=== PATIENT | female | born 1940 | race African-American/Black ===

== ENCOUNTER 2017-03-21 09:16 | Day surgery (SDC) | payer MEDICARE, MEDICAID ==
[~2017-03-21] VITALS: Ht 154.9 cm; Wt 49.0 kg
[~2017-03-21 09:16] MED LIST: ASPI-1159 PO; ASPI-867 PO; CLOP75TA16 PO; LIP40 PO; MECL-109 PO
[2017-03-21] MEDS ORDERED: AMLO10TA80 PO (10:14)
[2017-03-21] MEDS ORDERED: METO-396 PO (10:14)
[2017-03-21] MEDS ORDERED: NITROGLYCERIN 50MCG/ML 10ML VIAL (CATH LAB) IV ONE (11:53)
[2017-03-21] MEDS ORDERED: NICARDIPINE 100MCG/ML 10ML VIAL (CATH LAB) IV ONE (11:53)
[2017-03-21] MEDS ORDERED: FENTANYL CITRATE/PF 50MCG/ML 2ML VIAL ONE (12:47)
[2017-03-21] MEDS ORDERED: MIDAZOLAM HCL 2 MG/2 ML VIAL ONE (12:47)
[2017-03-21] MEDS ORDERED: IODIXANOL 320MG/ML 100 ML BOTTLE IV ONE (12:48)
[2017-03-21] MEDS ORDERED: LIDOCAINE HCL 1% 20ML VIAL (Pyxis) INJ ONE (12:48)
[2017-03-21] MEDS ORDERED: HEPARIN SODIUM 1,000 UNIT/1ML VIAL IV ONE (12:49)
== END 2017-03-21 19:30 | disposition home or self-care (01) ==
LOC: CCL 09:16
PROVIDERS: ATTEND Specialist
DX: I25.10 Atherosclerotic heart disease of native coronary artery without angina pectoris (principal); I10 Essential (primary) hypertension; I73.89 Other specified peripheral vascular diseases; E78.5 Hyperlipidemia, unspecified
CPT/HCPCS: 93458; 99152; 99153; C1760; C1769; C1887; C1893; J1644; J2250; J3010; J3490; Q9967

== ENCOUNTER 2018-06-03 04:49 | Inpatient (IN) | payer MEDICARE, MEDICAID, OTHER ==
[~2018-06-03] VITALS: Ht 154.9 cm; Wt 53.6 kg
[~2018-06-03 04:49] MED LIST changes: +AMLO10TA80 PO; -ASPI-1159 PO; -ASPI-867 PO; -LIP40 PO
[2018-06-03] MEDS ORDERED: NITROGLYCERIN OINT 1GM/INCH UDPKT TD ONE (05:30)
[2018-06-03 06:13] LABS: BASOPHILS % 0.4 % (0.0-2.0); EOSINOPHILS % 1.5 % (0.0-5.0); HEMATOCRIT. 36.8 % (36.0-48.0); HEMOGLOBIN. 11.9 g/dL (12.0-16.0); LYMPHOCYTES % 31.4 % (20.0-50.0); MEAN CORPUSCULAR HEMOGLOBIN 29.8 pg (28.0-32.0); MEAN CORPUSCULAR VOLUME 92.2 fL (81.0-99.0); MEAN PLATELET VOLUME 10.1 fl (7.4-10.4); MONOCYTES % 11.9 % (2.0-8.0); NEUTROPHILS % 54.8 % (40.0-76.0); PLATELET 186 x1000/uL (130-400); RED CELL DISTRIBUTION WIDTH 16.4 % (11.6-14.6)
[2018-06-03 06:20] LABS: CHLORIDE 116 mEq/L (98-107)
[2018-06-03] MEDS ORDERED: MAGNESIUM/ALUMINUM HYDROXIDE/SIMETHICONE 30ML UDC PO PRN (07:45)
[2018-06-03] MEDS ORDERED: GUAIFENESIN 200MG/10ML SUGAR FREE UDC PO PRN (07:45)
[2018-06-03] MEDS ORDERED: CLONIDINE 0.1MG TABLET PO PRN (07:45)
[2018-06-03] MEDS ORDERED: DOCUSATE SODIUM 100MG CAPSULE PO PRN (07:45)
[2018-06-03] MEDS ORDERED: AMLODIPINE 5MG TABLET PO NR (08:45)
[2018-06-03] MEDS: ASPIRIN 81MG EC TABLET PO SCH (09:00)
[2018-06-03] MEDS ORDERED: AMLODIPINE 5MG TABLET PO SCH ×2 (09:00→17:00)
[2018-06-03] MEDS ORDERED: NITROGLYCERIN OINT 1GM/INCH UDPKT TD SCH (12:00)
[2018-06-03] MEDS: HYDROCODONE/ACETAMINOPHEN 5/325MG TABLET PO PRN (15:45)
[2018-06-03 17:49] VITALS: BP 149/68
[2018-06-03 17:50] VITALS: BP 149/68
[2018-06-03] MEDS ORDERED: ONDANSETRON HCL 4MG/2ML INJ IV PRN (18:04)
[2018-06-03] MEDS ORDERED: REGADENOSON 0.4 MG/5 ML IV SCH (18:05)
[2018-06-03] MEDS ORDERED: MORPHINE SULFATE 4 MG/ML CPJ (NOT FOR IM USE) IV PRN (18:05)
[2018-06-03 20:00] VITALS: BP 150/72
[2018-06-03] MEDS ORDERED: ENOXAPARIN 30MG/0.3ML SYR SUBCUT SCH (20:00)
[2018-06-03] MEDS ORDERED: ATORVASTATIN CALCIUM 10MG TABLET PO SCH (21:00)
[2018-06-03] MEDS ORDERED: INFLUENZA VIRUS VACCINE(AFLURIA) 0.5ML SYR IM ONE (21:45)
[2018-06-03] MEDS ORDERED: PNEUMOCOCCAL 23-VAL P-SAC VAC 0.5 ML IM ONE (21:45)
[2018-06-04] VITALS: BP 140/60
[2018-06-04 04:00] VITALS: BP 143/67
[2018-06-04 06:54] LABS: HEMATOCRIT. 33.7 % (36.0-48.0); HEMOGLOBIN. 10.9 g/dL (12.0-16.0); MEAN CORPUSCULAR HEMOGLOBIN 29.7 pg (28.0-32.0); MEAN CORPUSCULAR VOLUME 91.9 fL (81.0-99.0); MEAN PLATELET VOLUME 10.2 fl (7.4-10.4); PLATELET 162 x1000/uL (130-400); RED BLOOD CELL COUNT 3.66 mill/uL (4.2-5.4); RED CELL DISTRIBUTION WIDTH 16.4 % (11.6-14.6)
[2018-06-04 07:06] LABS: CHLORIDE 114 mEq/L (98-107)
[2018-06-04 07:31] LABS: LDL CHOLESTEROL 210 mg/dL (5-100)
[2018-06-04 07:33] LABS: HDL CHOLESTEROL 47 mg/dL (40-59)
[2018-06-04 08:00] VITALS: BP 154/79
[2018-06-04] MEDS ORDERED: REGADENOSON 0.4 MG/5 ML IV ONE (09:17)
[2018-06-04] MEDS: ASPIRIN 81MG EC TABLET PO SCH (10:26)
[2018-06-04 12:00] VITALS: BP 117/50
[2018-06-04] MEDS: HYDROCODONE/ACETAMINOPHEN 5/325MG TABLET PO PRN (13:45)
[2018-06-04 16:00] VITALS: BP 110/62
[2018-06-04 16:50] LABS: PLATELET ESTIMATE NORMAL
[2018-06-04 16:58] VITALS: BP 110/62
== END 2018-06-04 18:30 | disposition home or self-care (01) | DRG 303 ==
LOC: ER 04:49 → 5WST 05:36 → MERGE 05:36 → EDBEDREQ 05:38 → SUPCPDRO 14:29 → ENRESERV 16:00
PROVIDERS: ADMIT Hospitalist; ATTEND Hospitalist
PROC: 3E02340 Introduction of Influenza Vaccine into Muscle, Percutaneous Approach (ICD-10-PCS; principal; 2018-06-03)
PROC: 3E0234Z Introduction of Serum, Toxoid and Vaccine into Muscle, Percutaneous Approach (ICD-10-PCS; 2018-06-03)
DX: I25.10 Atherosclerotic heart disease of native coronary artery without angina pectoris (principal); E78.00 Pure hypercholesterolemia, unspecified; E78.5 Hyperlipidemia, unspecified; I44.7 Left bundle-branch block, unspecified; I49.1 Atrial premature depolarization; I73.9 Peripheral vascular disease, unspecified; I13.10 Hypertensive heart and chronic kidney disease without heart failure, with stage 1 through stage 4 chronic kidney disease, or unspecified chronic kidney disease; K21.9 Gastro-esophageal reflux disease without esophagitis; N18.9 Chronic kidney disease, unspecified; Z86.73 Personal history of transient ischemic attack (TIA), and cerebral infarction without residual deficits; Z95.5 Presence of coronary angioplasty implant and graft; Z87.891 Personal history of nicotine dependence
CPT/HCPCS: 36415; 71045; 78452; 80061; 83880; 84484; 85379; 90686; 90732; 93005; 93017; 93970; 96374; 99285; A9500; C1893; J1650; J2270; J2405; J2785

== ENCOUNTER 2018-06-22 09:59 | Inpatient (IN) | payer MEDICARE, OTHER ==
[~2018-06-22] VITALS: Ht 154.9 cm; Wt 46.9 kg
[2018-06-22] MEDS ORDERED: METHYLPREDNISOLONE SOD SUCC 125 MG/2 ML VIAL IV STA (10:34)
[2018-06-22] MEDS ORDERED: IPRATROPIUM BROMIDE (0.02%) 0.5MG/2.5ML NEB HHN STA (10:34)
[2018-06-22] MEDS ORDERED: ALBUTEROL (0.083%) 2.5MG/3ML NEB HHN STA (10:34)
[2018-06-22] MEDS ORDERED: HYDROCODONE/ACETAMINOPHEN 5/325MG TABLET PO ONE (12:00)
[2018-06-22] MEDS ORDERED: AZITHROMYCIN 500 MG in DEXT 5% WATER 250 ML IV SCH (12:45)
[2018-06-22] MEDS ORDERED: CEFTRIAXONE 1 G PREMIX 50 ML IV ONE (12:45)
[2018-06-22 13:14] LABS: BASOPHILS % 0.3 % (0.0-2.0); HEMATOCRIT. 36.7 % (36.0-48.0); HEMOGLOBIN. 11.7 g/dL (12.0-16.0); LYMPHOCYTES % 11.7 % (20.0-50.0); MEAN CORPUSCULAR HEMOGLOBIN 29.8 pg (28.0-32.0); MEAN CORPUSCULAR VOLUME 93.8 fL (81.0-99.0); MEAN PLATELET VOLUME 11.1 fl (7.4-10.4); MONOCYTES % 5.6 % (2.0-8.0); NEUTROPHILS % 82.4 % (40.0-76.0); PLATELET 156 x1000/uL (130-400); RED BLOOD CELL COUNT 3.92 mill/uL (4.2-5.4)
[2018-06-22 13:17] LABS: INR 1.1; PROTHROMBIN TIME 10.7 sec (9.1-11.1)
[2018-06-22 13:18] LABS: CHLORIDE 112 mEq/L (98-107)
[2018-06-22] MEDS ORDERED: ASPIRIN 325MG TABLET PO ONE (13:45)
[2018-06-22] MEDS ORDERED: ENOXAPARIN 60MG/0.6ML SYR SUBCUT ONE (13:45)
[2018-06-22] MEDS ORDERED: ACETAMINOPHEN 325MG TABLET PO PRN (14:15)
[2018-06-22] MEDS ORDERED: ZOLPIDEM TARTRATE 5MG TABLET PO PRN (14:15)
[2018-06-22] MEDS ORDERED: CLONIDINE 0.1MG TABLET PO PRN (14:15)
[2018-06-22] MEDS ORDERED: IPRATROPIUM/ALBUTEROL 0.5-3(2.5)MG/3ML NEB INH PRN (14:15)
[2018-06-22] MEDS ORDERED: NITROGLYCERIN 0.4MG TABLET SL SL PRN (14:15)
[2018-06-22] MEDS ORDERED: NA PHOS,M-B/NA PHOS,DI-BA ENEMA 118ML PR PRN (14:15)
[2018-06-22] MEDS ORDERED: LORAZEPAM 0.5MG TABLET PO PRN (14:15)
[2018-06-22] MEDS ORDERED: MAGNESIUM/ALUMINUM HYDROXIDE/SIMETHICONE 30ML UDC PO PRN (14:15)
[2018-06-22] MEDS ORDERED: ONDANSETRON HCL 4MG/2ML INJ IV PRN (14:15)
[2018-06-22] MEDS ORDERED: DOCUSATE SODIUM 100MG CAPSULE PO PRN (14:15)
[2018-06-22] MEDS ORDERED: GUAIFENESIN 200MG/10ML SUGAR FREE UDC PO PRN (14:15)
[2018-06-22 15:59] VITALS: BP 151/95
[2018-06-22] MEDS ORDERED: ATOR20TA65 PO (16:32)
[2018-06-22 16:39] VITALS: BP 151/95
[2018-06-22] MEDS ORDERED: AMLO5TAB88 PO (17:30)
[2018-06-22 18:00] VITALS: BP 137/72
[2018-06-22] MEDS: TRAMADOL 50MG TABLET PO PRN (18:30)
[2018-06-22 20:00] VITALS: BP 140/81
[2018-06-22] MEDS: AMLODIPINE 5MG TABLET PO SCH (21:33)
[2018-06-22] MEDS: ATORVASTATIN CALCIUM 40MG TABLET PO SCH (21:34)
[2018-06-22] MEDS: FAMOTIDINE 20MG TABLET PO SCH (21:34)
[2018-06-22] MEDS: FUROSEMIDE 40MG/4ML VIAL IVP SCH (21:34)
[2018-06-22 22:00] VITALS: BP 138/89
[2018-06-22 23:36] LABS: CREATINE KINASE MB FRACTION 51.2 ng/mL (0.5-3.6)
[2018-06-23] VITALS (12 sets, daily range): BP systolic 104–140; BP diastolic 48–78
[2018-06-23 06:03] LABS: BASOPHILS % 0.1 % (0.0-2.0); HEMATOCRIT. 31.2 % (36.0-48.0); LYMPHOCYTES % 10.2 % (20.0-50.0); MEAN CORPUSCULAR HEMOGLOBIN 29.3 pg (28.0-32.0); MEAN CORPUSCULAR VOLUME 91.1 fL (81.0-99.0); MEAN PLATELET VOLUME 11.3 fl (7.4-10.4); MONOCYTES % 5.9 % (2.0-8.0); NEUTROPHILS % 83.8 % (40.0-76.0); PLATELET 169 x1000/uL (130-400); RED BLOOD CELL COUNT 3.42 mill/uL (4.2-5.4); RED CELL DISTRIBUTION WIDTH 15.6 % (11.6-14.6)
[2018-06-23] MEDS: SPIRONOLACTONE 25MG TABLET PO SCH ×2 (06:26→17:39)
[2018-06-23 06:30] LABS: CREATINE KINASE MB FRACTION 67.3 ng/mL (0.5-3.6)
[2018-06-23] MEDS: TRAMADOL 50MG TABLET PO PRN (06:31)
[2018-06-23] MEDS ORDERED: NITROGLYCERIN OINT 1GM/INCH UDPKT TD NR (07:00)
[2018-06-23] MEDS: ASPIRIN 81MG EC TABLET PO SCH (08:08)
[2018-06-23] MEDS: AMLODIPINE 5MG TABLET PO SCH ×2 (08:08→20:40)
[2018-06-23] MEDS: FUROSEMIDE 40MG/4ML VIAL IVP SCH ×2 (08:09→21:45)
[2018-06-23] MEDS ORDERED: ASPIRIN 325MG EC TABLET PO SCH (09:00)
[2018-06-23] MEDS ORDERED: ENOXAPARIN 60MG/0.6ML SYR SUBCUT SCH (15:00)
[2018-06-23] MEDS: FAMOTIDINE 20MG TABLET PO SCH (20:40)
[2018-06-23] MEDS: ATORVASTATIN CALCIUM 40MG TABLET PO SCH (20:40)
[2018-06-23] MEDS: METOPROLOL TARTRATE 25MG TABLET PO SCH (20:40)
[2018-06-24] VITALS (11 sets, daily range): BP systolic 108–125; BP diastolic 44–78
[2018-06-24] MEDS: MORPHINE SULFATE 4 MG/ML CPJ (NOT FOR IM USE) IV PRN ×3 (02:52→21:10)
[2018-06-24] MEDS: SPIRONOLACTONE 25MG TABLET PO SCH (05:53)
[2018-06-24 06:35] LABS: HEMATOCRIT. 31.7 % (36.0-48.0); HEMOGLOBIN. 10.3 g/dL (12.0-16.0); MEAN CORPUSCULAR HEMOGLOBIN 29.5 pg (28.0-32.0); MEAN PLATELET VOLUME 11.4 fl (7.4-10.4); MONOCYTES % 6.8 % (2.0-8.0); NEUTROPHILS % 83.2 % (40.0-76.0); PLATELET 186 x1000/uL (130-400); RED BLOOD CELL COUNT 3.49 mill/uL (4.2-5.4); RED CELL DISTRIBUTION WIDTH 15.6 % (11.6-14.6)
[2018-06-24] MEDS: METOPROLOL TARTRATE 25MG TABLET PO SCH ×2 (08:35→22:07)
[2018-06-24] MEDS: ASPIRIN 81MG EC TABLET PO SCH (08:35)
[2018-06-24] MEDS: AMLODIPINE 5MG TABLET PO SCH ×2 (08:35→21:08)
[2018-06-24] MEDS: SODIUM CHLORIDE 0.45% 1,000 ML IV SCH ×2 (09:27→23:33)
[2018-06-24] MEDS: ATORVASTATIN CALCIUM 40MG TABLET PO SCH (21:08)
[2018-06-24] MEDS: FAMOTIDINE 20MG TABLET PO SCH (21:11)
[2018-06-25] VITALS (14 sets, daily range): BP systolic 100–145; BP diastolic 40–84
[2018-06-25 06:07] LABS: BASOPHILS % 0.2 % (0.0-2.0); EOSINOPHILS % 0.8 % (0.0-5.0); HEMATOCRIT. 32.9 % (36.0-48.0); HEMOGLOBIN. 10.6 g/dL (12.0-16.0); LYMPHOCYTES % 15.7 % (20.0-50.0); MEAN CORPUSCULAR HEMOGLOBIN 29.4 pg (28.0-32.0); MEAN CORPUSCULAR VOLUME 91.7 fL (81.0-99.0); MEAN PLATELET VOLUME 11.5 fl (7.4-10.4); MONOCYTES % 8.6 % (2.0-8.0); NEUTROPHILS % 74.7 % (40.0-76.0); PLATELET 192 x1000/uL (130-400); RED BLOOD CELL COUNT 3.59 mill/uL (4.2-5.4); RED CELL DISTRIBUTION WIDTH 15.6 % (11.6-14.6)
[2018-06-25 06:43] LABS: PHOSPHORUS 3.5 mg/dL (2.5-4.9)
[2018-06-25 07:46] LABS: CLARITY URINE CLOUDY (CLEAR); COLOR URINE YELLOW (YELLOW); KETONES URINE 1+ (NEGATIVE); LEUKOCYTE ESTERASE URINE 2+ (NEGATIVE); NITRITE URINE NEGATIVE (NEGATIVE); OCCULT BLOOD URINE TRACE (NEGATIVE); PROTEIN URINE NEGATIVE (NEGATIVE); SPECIFIC GRAVITY URINE 1.016 (1.005-1.030); UROBILINOGEN URINE 0.2 E.U./dL (0.2-1.0)
[2018-06-25] MEDS ORDERED: DEXTROSE 50% WATER 50ML SYRINGE IV ONE (08:12)
[2018-06-25] MEDS ORDERED: DEXTROSE 50% WATER 50ML SYRINGE IV NR (08:45)
[2018-06-25] MEDS ORDERED: DEXTROSE 5% WATER 1,000 ML IV SCH (08:45)
[2018-06-25] MEDS: METOPROLOL TARTRATE 25MG TABLET PO SCH ×2 (09:00→22:01)
[2018-06-25] MEDS: AMLODIPINE 5MG TABLET PO SCH ×2 (09:00→20:36)
[2018-06-25] MEDS: DEXT 5%/0.45% NACL 1000ML 1,000 ML IV SCH (10:25)
[2018-06-25] MEDS: ASPIRIN 81MG EC TABLET PO SCH (10:25)
[2018-06-25] MEDS ORDERED: HEPARIN SODIUM 1,000 UNIT/1ML VIAL IV ONE (15:57)
[2018-06-25] MEDS ORDERED: NITROGLYCERIN 50MCG/ML 10ML VIAL (CATH LAB) IV ONE (15:57)
[2018-06-25] MEDS ORDERED: NICARDIPINE 100MCG/ML 10ML VIAL (CATH LAB) IV ONE (15:57)
[2018-06-25] MEDS ORDERED: IODIXANOL 320MG/ML 100 ML BOTTLE IV ONE (16:03)
[2018-06-25] MEDS ORDERED: LIDOCAINE HCL 1% 20ML VIAL (Pyxis) INJ ONE (16:03)
[2018-06-25] MEDS ORDERED: FENTANYL CITRATE/PF 50MCG/ML 2ML VIAL ONE (16:11)
[2018-06-25] MEDS ORDERED: MIDAZOLAM HCL 2 MG/2 ML VIAL ONE (16:11)
[2018-06-25] MEDS ORDERED: IOHEXOL-300 100 ML BOTTLE ONE (16:16)
[2018-06-25] MEDS ORDERED: ASPIRIN 325MG TABLET ONE (17:03)
[2018-06-25] MEDS ORDERED: CLOPIDOGREL 75MG TABLET ONE (17:04)
[2018-06-25] MEDS ORDERED: ONDANSETRON HCL 4MG/2ML INJ IV PRN (17:15)
[2018-06-25] MEDS ORDERED: ATROPINE SULFATE 1MG/10ML SYR IV PRN (17:15)
[2018-06-25] MEDS ORDERED: ACETAMINOPHEN 325MG TABLET PO PRN (17:15)
[2018-06-25] MEDS: FAMOTIDINE 20MG TABLET PO SCH (20:36)
[2018-06-25] MEDS: ATORVASTATIN CALCIUM 40MG TABLET PO SCH (20:36)
[2018-06-26] VITALS (12 sets, daily range): BP systolic 103–135; BP diastolic 34–77
[2018-06-26] MEDS: DEXT 5%/0.45% NACL 1000ML 1,000 ML IV SCH ×2 (02:27→12:47)
[2018-06-26 07:14] LABS: BASOPHILS % 0.2 % (0.0-2.0); EOSINOPHILS % 1.4 % (0.0-5.0); HEMATOCRIT. 33.7 % (36.0-48.0); LYMPHOCYTES % 20.1 % (20.0-50.0); MEAN CORPUSCULAR HEMOGLOBIN 29.6 pg (28.0-32.0); MEAN CORPUSCULAR VOLUME 90.6 fL (81.0-99.0); MONOCYTES % 13.9 % (2.0-8.0); NEUTROPHILS % 64.4 % (40.0-76.0); PLATELET 180 x1000/uL (130-400); RED BLOOD CELL COUNT 3.72 mill/uL (4.2-5.4)
[2018-06-26 08:10] LABS: PHOSPHORUS 3.1 mg/dL (2.5-4.9)
[2018-06-26] MEDS: AMLODIPINE 5MG TABLET PO SCH ×2 (09:01→21:14)
[2018-06-26] MEDS: ASPIRIN 81MG EC TABLET PO SCH (09:01)
[2018-06-26] MEDS: METOPROLOL TARTRATE 25MG TABLET PO SCH ×2 (09:01→21:15)
[2018-06-26] MEDS: FAMOTIDINE 20MG TABLET PO SCH (21:14)
[2018-06-26] MEDS: ATORVASTATIN CALCIUM 40MG TABLET PO SCH (21:14)
[2018-06-26] MEDS: TRAMADOL 50MG TABLET PO PRN (23:56)
[2018-06-27] VITALS (11 sets, daily range): BP systolic 100–138; BP diastolic 51–65
[2018-06-27] MEDS: DEXT 5%/0.45% NACL 1000ML 1,000 ML IV SCH (02:11)
[2018-06-27 06:45] LABS: MEAN CORPUSCULAR HEMOGLOBIN 29.5 pg (28.0-32.0); MEAN CORPUSCULAR VOLUME 90.9 fL (81.0-99.0); MEAN PLATELET VOLUME 11.1 fl (7.4-10.4); PLATELET 167 x1000/uL (130-400); RED BLOOD CELL COUNT 3.74 mill/uL (4.2-5.4); RED CELL DISTRIBUTION WIDTH 15.4 % (11.6-14.6)
[2018-06-27 07:20] LABS: PHOSPHORUS 3.2 mg/dL (2.5-4.9)
[2018-06-27] MEDS: METOPROLOL TARTRATE 25MG TABLET PO SCH ×2 (09:27→20:23)
[2018-06-27] MEDS: AMLODIPINE 5MG TABLET PO SCH ×2 (09:27→20:23)
[2018-06-27] MEDS: ASPIRIN 81MG EC TABLET PO SCH (09:27)
[2018-06-27 11:30] LABS: PLATELET ESTIMATE NORMAL
[2018-06-27] MEDS: ATORVASTATIN CALCIUM 40MG TABLET PO SCH (20:23)
[2018-06-27] MEDS: FAMOTIDINE 20MG TABLET PO SCH (20:23)
[2018-06-28] VITALS (10 sets, daily range): BP systolic 101–135; BP diastolic 30–76
[2018-06-28 07:33] LABS: HEMATOCRIT. 36.1 % (36.0-48.0); HEMOGLOBIN. 11.7 g/dL (12.0-16.0); MEAN CORPUSCULAR HEMOGLOBIN 29.3 pg (28.0-32.0); MEAN CORPUSCULAR VOLUME 90.5 fL (81.0-99.0); MEAN PLATELET VOLUME 10.5 fl (7.4-10.4); PLATELET 155 x1000/uL (130-400); RED BLOOD CELL COUNT 3.98 mill/uL (4.2-5.4)
[2018-06-28 07:50] LABS: PHOSPHORUS 3.1 mg/dL (2.5-4.9)
[2018-06-28] MEDS: AMLODIPINE 5MG TABLET PO SCH (08:29)
[2018-06-28] MEDS: ASPIRIN 81MG EC TABLET PO SCH (08:30)
[2018-06-28] MEDS: METOPROLOL TARTRATE 25MG TABLET PO SCH (08:30)
[2018-06-29 13:31] LABS: PLATELET ESTIMATE NORMAL
== END 2018-06-28 18:23 | DRG 246 ==
LOC: ER 10:09 → 3WST 13:47 → MERGE 13:47 → EDBEDREQ 13:49 → EDBEDREQSVC 13:49 → EDBEDREQTM 13:49 → ENRESERV 14:02 → SUPCPDRO 14:08
PROVIDERS: ADMIT Internal Medicine; ATTEND Internal Medicine
PROC: B2101ZZ Fluoroscopy of Single Coronary Artery using Low Osmolar Contrast (ICD-10-PCS; principal; 2018-06-25)
PROC: 027035Z Dilation of Coronary Artery, One Artery with Two Drug-eluting Intraluminal Devices, Percutaneous Approach (ICD-10-PCS; 2018-06-25)
DX: I21.4 Non-ST elevation (NSTEMI) myocardial infarction (principal); N17.0 Acute kidney failure with tubular necrosis; I50.43 Acute on chronic combined systolic (congestive) and diastolic (congestive) heart failure; J18.9 Pneumonia, unspecified organism; J96.01 Acute respiratory failure with hypoxia; E44.1 Mild protein-calorie malnutrition; I42.9 Cardiomyopathy, unspecified; M62.82 Rhabdomyolysis; G81.91 Hemiplegia, unspecified affecting right dominant side; I13.0 Hypertensive heart and chronic kidney disease with heart failure and stage 1 through stage 4 chronic kidney disease, or unspecified chronic kidney disease; J44.0 Chronic obstructive pulmonary disease with (acute) lower respiratory infection; Z68.1 Body mass index [BMI] 19.9 or less, adult; I25.110 Atherosclerotic heart disease of native coronary artery with unstable angina pectoris; E83.51 Hypocalcemia; N18.3 Chronic kidney disease, stage 3 (moderate); I73.9 Peripheral vascular disease, unspecified; D64.9 Anemia, unspecified; E78.5 Hyperlipidemia, unspecified; B35.9 Dermatophytosis, unspecified; E78.00 Pure hypercholesterolemia, unspecified; Z79.82 Long term (current) use of aspirin; Z79.899 Other long term (current) drug therapy; Z82.49 Family history of ischemic heart disease and other diseases of the circulatory system; Z86.73 Personal history of transient ischemic attack (TIA), and cerebral infarction without residual deficits; Z87.891 Personal history of nicotine dependence; Z95.5 Presence of coronary angioplasty implant and graft
CPT/HCPCS: 36415; 70551; 71045; 76770; 80048; 80061; 82550; 82553; 82962; 83036; 83735; 83880; 84100; 84484; 85347; 92610; 92928; 93005; 93454; 93970; 96374; 97110; 97116; 97162; 97530; 97535; 99285; C1725; C1760; C1769; C1874; C1887; C1893; J0456; J0696; J1644; J1650; J1940; J2250; J2270; J2930; J3010; J3490; J7060; J7070; J7611; J7620; Q9967

== ENCOUNTER 2018-06-28 18:27 | Inpatient (IN) | payer MEDICARE, OTHER ==
[~2018-06-28] VITALS: Ht 154.9 cm; Wt 46.3 kg
[~2018-06-28 18:27] MED LIST changes: +AMLO5TAB88 PO; +ATOR20TA65 PO
[2018-06-28 20:00] VITALS: BP 128/47
[2018-06-29] MEDS ORDERED: ACETAMINOPHEN 325MG TABLET PO PRN (00:15)
[2018-06-29] MEDS ORDERED: MAGNESIUM/ALUMINUM HYDROXIDE/SIMETHICONE 30ML UDC PO PRN (00:15)
[2018-06-29] MEDS ORDERED: NITROGLYCERIN 0.4MG TABLET SL SL PRN (00:15)
[2018-06-29] MEDS ORDERED: ONDANSETRON HCL 4MG/2ML INJ IV PRN (00:15)
[2018-06-29] MEDS ORDERED: IPRATROPIUM/ALBUTEROL 0.5-3(2.5)MG/3ML NEB HHN PRN (00:15)
[2018-06-29] MEDS ORDERED: NA PHOS,M-B/NA PHOS,DI-BA ENEMA 118ML PR PRN (00:15)
[2018-06-29] MEDS ORDERED: DOCUSATE SODIUM 100MG CAPSULE PO PRN (00:15)
[2018-06-29] MEDS ORDERED: GUAIFENESIN 200MG/10ML SUGAR FREE UDC PO PRN (00:15)
[2018-06-29] MEDS ORDERED: CLONIDINE 0.1MG TABLET PO PRN (00:15)
[2018-06-29 01:16] VITALS: BP 118/59
[2018-06-29 07:29] LABS: HEMATOCRIT. 33.4 % (36.0-48.0); MEAN CORPUSCULAR HEMOGLOBIN 29.5 pg (28.0-32.0); MEAN PLATELET VOLUME 11.1 fl (7.4-10.4); PLATELET 159 x1000/uL (130-400); RED BLOOD CELL COUNT 3.72 mill/uL (4.2-5.4); RED CELL DISTRIBUTION WIDTH 15.4 % (11.6-14.6)
[2018-06-29 07:42] LABS: CHLORIDE 109 mEq/L (98-107)
[2018-06-29 08:15] VITALS: BP 121/47
[2018-06-29] MEDS: AMLODIPINE 5MG TABLET PO SCH ×2 (08:57→20:53)
[2018-06-29] MEDS: METOPROLOL TARTRATE 25MG TABLET PO SCH ×2 (08:57→20:53)
[2018-06-29] MEDS: ASCORBIC ACID 500 MG TABLET PO SCH (09:00)
[2018-06-29] MEDS: ASPIRIN 81MG EC TABLET PO SCH (09:00)
[2018-06-29] MEDS: ZINC SULFATE 220 MG ( 50 ) CAPSULE PO SCH (09:00)
[2018-06-29] MEDS: ACETAMINOPHEN 325MG TABLET PO PRN (11:03)
[2018-06-29] MEDS: TRAMADOL 50MG TABLET PO PRN (15:47)
[2018-06-29] MEDS: CLOPIDOGREL 75MG TABLET PO SCH (19:00)
[2018-06-29] MEDS ORDERED: FAMOTIDINE 20MG TABLET PO SCH (19:30)
[2018-06-29 20:00] VITALS: BP 95/53
[2018-06-29] MEDS: ATORVASTATIN CALCIUM 40MG TABLET PO SCH (20:52)
[2018-06-29] MEDS: FAMOTIDINE 20MG TABLET PO SCH (20:56)
[2018-06-29 22:26] LABS: PLATELET ESTIMATE NORMAL
[2018-06-30] MEDS: CLOPIDOGREL 75MG TABLET PO SCH (08:36)
[2018-06-30] MEDS: METOPROLOL TARTRATE 25MG TABLET PO SCH ×2 (08:38→22:13)
[2018-06-30] MEDS: ASPIRIN 81MG EC TABLET PO SCH (08:38)
[2018-06-30] MEDS: AMLODIPINE 5MG TABLET PO SCH ×2 (08:38→21:00)
[2018-06-30] MEDS: ZINC SULFATE 220 MG ( 50 ) CAPSULE PO SCH (08:38)
[2018-06-30] MEDS: ASCORBIC ACID 500 MG TABLET PO SCH (08:38)
[2018-06-30 08:39] VITALS: BP 107/65
[2018-06-30] MEDS ORDERED: LACTULOSE 20G/30ML UDC PO PRN (12:00)
[2018-06-30 13:58] LABS: CLARITY URINE CLEAR (CLEAR); COLOR URINE YELLOW (YELLOW); KETONES URINE 1+ (NEGATIVE); LEUKOCYTE ESTERASE URINE NEGATIVE (NEGATIVE); NITRITE URINE NEGATIVE (NEGATIVE); OCCULT BLOOD URINE NEGATIVE (NEGATIVE); PROTEIN URINE NEGATIVE (NEGATIVE); UROBILINOGEN URINE 0.2 E.U./dL (0.2-1.0)
[2018-06-30 20:00] VITALS: BP 123/55
[2018-06-30] MEDS: FAMOTIDINE 20MG TABLET PO SCH (22:13)
[2018-06-30] MEDS: ATORVASTATIN CALCIUM 40MG TABLET PO SCH (22:13)
[2018-07-01] MEDS: ACETAMINOPHEN 325MG TABLET PO PRN (06:12)
[2018-07-01 06:53] LABS: HEMATOCRIT. 31.5 % (36.0-48.0); HEMOGLOBIN. 10.1 g/dL (12.0-16.0); MEAN CORPUSCULAR HEMOGLOBIN 28.8 pg (28.0-32.0); MEAN CORPUSCULAR VOLUME 89.7 fL (81.0-99.0); MEAN PLATELET VOLUME 10.8 fl (7.4-10.4); PLATELET 160 x1000/uL (130-400); RED BLOOD CELL COUNT 3.51 mill/uL (4.2-5.4); RED CELL DISTRIBUTION WIDTH 15.4 % (11.6-14.6)
[2018-07-01 07:53] LABS: CHLORIDE 111 mEq/L (98-107)
[2018-07-01 08:00] VITALS: BP 111/62
[2018-07-01 08:02] LABS: PHOSPHORUS 2.7 mg/dL (2.5-4.9)
[2018-07-01 08:10] LABS: TOTAL IRON BINDING CAPACITY 235 ug/dL (250-450)
[2018-07-01] MEDS: METOPROLOL TARTRATE 25MG TABLET PO SCH ×2 (09:00→21:48)
[2018-07-01] MEDS: AMLODIPINE 5MG TABLET PO SCH (09:00)
[2018-07-01] MEDS: ASCORBIC ACID 500 MG TABLET PO SCH (09:19)
[2018-07-01] MEDS: CLOPIDOGREL 75MG TABLET PO SCH (09:19)
[2018-07-01] MEDS: ASPIRIN 81MG EC TABLET PO SCH (09:19)
[2018-07-01] MEDS: ZINC SULFATE 220 MG ( 50 ) CAPSULE PO SCH (09:19)
[2018-07-01 09:23] LABS: PLATELET ESTIMATE NORMAL
[2018-07-01] MEDS: TRAMADOL 50MG TABLET PO PRN (11:34)
[2018-07-01 20:00] VITALS: BP 131/58
[2018-07-01] MEDS: AMLODIPINE 2.5MG TABLET PO SCH (21:00)
[2018-07-01] MEDS: ATORVASTATIN CALCIUM 40MG TABLET PO SCH (21:47)
[2018-07-01] MEDS: FAMOTIDINE 20MG TABLET PO SCH (21:48)
[2018-07-01] MEDS: IRON SUCROSE COMPLEX 100 MG in SODIUM CHLORIDE 0.9% 100 ML IV SCH (22:24)
[2018-07-02 08:00] VITALS: BP 124/60
[2018-07-02] MEDS: ASCORBIC ACID 500 MG TABLET PO SCH (08:58)
[2018-07-02] MEDS: CLOPIDOGREL 75MG TABLET PO SCH (08:58)
[2018-07-02] MEDS: ZINC SULFATE 220 MG ( 50 ) CAPSULE PO SCH (08:58)
[2018-07-02] MEDS: AMLODIPINE 2.5MG TABLET PO SCH ×2 (08:59→21:00)
[2018-07-02] MEDS: ASPIRIN 81MG EC TABLET PO SCH (08:59)
[2018-07-02] MEDS: METOPROLOL TARTRATE 25MG TABLET PO SCH ×2 (09:00→22:37)
[2018-07-02] MEDS ORDERED: LEVOFLOXACIN 500MG TABLET PO SCH (12:15)
[2018-07-02] MEDS ORDERED: LEVOFLOXACIN 500MG TABLET PO NR (13:00)
[2018-07-02 20:00] VITALS: BP 129/54
[2018-07-02] MEDS: FAMOTIDINE 20MG TABLET PO SCH (22:37)
[2018-07-02] MEDS: ATORVASTATIN CALCIUM 40MG TABLET PO SCH (22:37)
[2018-07-02] MEDS: IRON SUCROSE COMPLEX 100 MG in SODIUM CHLORIDE 0.9% 100 ML IV SCH (22:38)
[2018-07-03 07:02] LABS: HEMATOCRIT. 31.5 % (36.0-48.0); HEMOGLOBIN. 10.3 g/dL (12.0-16.0); MEAN CORPUSCULAR HEMOGLOBIN 29.7 pg (28.0-32.0); MEAN CORPUSCULAR VOLUME 90.4 fL (81.0-99.0); PLATELET 161 x1000/uL (130-400); RED BLOOD CELL COUNT 3.48 mill/uL (4.2-5.4); RED CELL DISTRIBUTION WIDTH 15.1 % (11.6-14.6)
[2018-07-03 08:00] VITALS: BP 137/41
[2018-07-03] MEDS: ZINC SULFATE 220 MG ( 50 ) CAPSULE PO SCH (08:53)
[2018-07-03] MEDS: AMLODIPINE 2.5MG TABLET PO SCH (08:54)
[2018-07-03] MEDS: CLOPIDOGREL 75MG TABLET PO SCH (08:54)
[2018-07-03] MEDS: ASPIRIN 81MG EC TABLET PO SCH (08:54)
[2018-07-03] MEDS: ASCORBIC ACID 500 MG TABLET PO SCH (08:54)
[2018-07-03] MEDS: METOPROLOL TARTRATE 25MG TABLET PO SCH (08:54)
[2018-07-03 10:49] VITALS: BP 137/41
[2018-07-03] MEDS ORDERED: LEVOFLOXACIN 250MG TABLET PO SCH (13:00)
[2018-07-03 13:38] LABS: PLATELET ESTIMATE NORMAL
[2018-07-04 17:06] LABS: 25-HYDROXY VITAMIN D3 3.6 ng/mL (.)
== END 2018-07-03 14:45 | disposition home health service (06) | DRG 280 ==
PROVIDERS: ADMIT Physical Medicine & Rehabilitation Spinal Cord Injury Medicine; ATTEND Internal Medicine
DX: I21.4 Non-ST elevation (NSTEMI) myocardial infarction (principal); J18.9 Pneumonia, unspecified organism; N17.9 Acute kidney failure, unspecified; E44.0 Moderate protein-calorie malnutrition; I42.9 Cardiomyopathy, unspecified; J44.0 Chronic obstructive pulmonary disease with (acute) lower respiratory infection; I69.351 Hemiplegia and hemiparesis following cerebral infarction affecting right dominant side; Z68.1 Body mass index [BMI] 19.9 or less, adult; L89.159 Pressure ulcer of sacral region, unspecified stage; I11.0 Hypertensive heart disease with heart failure; I50.9 Heart failure, unspecified; D63.8 Anemia in other chronic diseases classified elsewhere; I25.10 Atherosclerotic heart disease of native coronary artery without angina pectoris; E78.00 Pure hypercholesterolemia, unspecified; R53.81 Other malaise; I73.9 Peripheral vascular disease, unspecified; G89.29 Other chronic pain; R13.10 Dysphagia, unspecified; E78.5 Hyperlipidemia, unspecified; E61.1 Iron deficiency; Z79.02 Long term (current) use of antithrombotics/antiplatelets; Z82.49 Family history of ischemic heart disease and other diseases of the circulatory system; Z95.5 Presence of coronary angioplasty implant and graft; Z79.82 Long term (current) use of aspirin; Z87.891 Personal history of nicotine dependence
CPT/HCPCS: 36415; 80048; 82306; 82607; 82728; 82746; 83036; 83540; 83550; 83735; 84100; 84134; 84443; 87077; 87186; 92523; 92610; 93970; 97110; 97116; 97162; 97166; 97530; 97535; G0515; J7040; J7050

== ENCOUNTER 2018-07-14 14:26 | Inpatient (IN) | payer MEDICARE, OTHER ==
[~2018-07-14] VITALS: Ht 154.9 cm; Wt 49.9 kg
[~2018-07-14 14:26] MED LIST changes: -AMLO10TA80 PO; -AMLO5TAB88 PO; -ATOR20TA65 PO; -MECL-109 PO
[2018-07-14] MEDS ORDERED: ASPIRIN 81MG TABLET PO ONE (15:00)
[2018-07-14] MEDS: NITROGLYCERIN 0.4MG TABLET SL SL PRN ×3 (15:15→15:42)
[2018-07-14 15:28] LABS: BASOPHILS % 1.4 % (0.0-2.0); EOSINOPHILS % 1.3 % (0.0-5.0); HEMATOCRIT. 36.9 % (36.0-48.0); LYMPHOCYTES % 32.4 % (20.0-50.0); MEAN CORPUSCULAR HEMOGLOBIN 29.4 pg (28.0-32.0); MEAN CORPUSCULAR VOLUME 90.4 fL (81.0-99.0); MEAN PLATELET VOLUME 9.9 fl (7.4-10.4); MONOCYTES % 8.8 % (2.0-8.0); NEUTROPHILS % 56.1 % (40.0-76.0); PLATELET 158 x1000/uL (130-400); RED BLOOD CELL COUNT 4.09 mill/uL (4.2-5.4); RED CELL DISTRIBUTION WIDTH 15.9 % (11.6-14.6)
[2018-07-14 15:32] LABS: CHLORIDE 112 mEq/L (98-107)
[2018-07-14 15:42] LABS: D-DIMER 2.38 mg/L FEU (<0.50); INR 1.1; PARTIAL THROMBOPLASTIN TIME 27.6 sec (23.4-31.0); PROTHROMBIN TIME 10.7 sec (9.1-11.1)
[2018-07-14] MEDS ORDERED: ONDANSETRON HCL 4MG/2ML INJ IV STA (17:15)
[2018-07-14] MEDS ORDERED: MORPHINE SULFATE 4 MG/ML CPJ (NOT FOR IM USE) IV STA (17:15)
[2018-07-14] MEDS ORDERED: MORPHINE SULFATE 4 MG/ML CPJ (NOT FOR IM USE) IV ONE (17:24)
[2018-07-14] MEDS ORDERED: ENOXAPARIN 40MG/0.4ML SYR SUBCUT SCH (19:15)
[2018-07-14] MEDS ORDERED: CLONIDINE 0.1MG TABLET PO PRN (19:15)
[2018-07-14] MEDS ORDERED: ACETAMINOPHEN 325MG TABLET PO PRN (19:15)
[2018-07-14] MEDS ORDERED: HYDROCODONE/ACETAMINOPHEN 5/325MG TABLET PO PRN (19:15)
[2018-07-14] MEDS ORDERED: ONDANSETRON HCL 4MG/2ML INJ IV PRN (19:15)
[2018-07-14 23:26] LABS: CREATINE KINASE MB FRACTION 38.4 ng/mL (0.5-3.6)
[2018-07-15] VITALS (8 sets, daily range): BP systolic 104–128; BP diastolic 52–65
[2018-07-15] MEDS ORDERED: ENOXAPARIN 60MG/0.6ML SYR SUBCUT NR (01:30)
[2018-07-15] MEDS: MORPHINE SULFATE 4 MG/ML CPJ (NOT FOR IM USE) IV PRN (02:33)
[2018-07-15 04:10] LABS: BASOPHILS % 0.5 % (0.0-2.0); HEMATOCRIT. 30.9 % (36.0-48.0); HEMOGLOBIN. 10.1 g/dL (12.0-16.0); LYMPHOCYTES % 29.9 % (20.0-50.0); MEAN CORPUSCULAR HEMOGLOBIN 29.7 pg (28.0-32.0); MEAN CORPUSCULAR VOLUME 90.9 fL (81.0-99.0); MEAN PLATELET VOLUME 10.8 fl (7.4-10.4); MONOCYTES % 10.9 % (2.0-8.0); NEUTROPHILS % 57.7 % (40.0-76.0); PLATELET 145 x1000/uL (130-400); RED BLOOD CELL COUNT 3.41 mill/uL (4.2-5.4); RED CELL DISTRIBUTION WIDTH 15.8 % (11.6-14.6)
[2018-07-15 04:15] LABS: CHLORIDE 113 mEq/L (98-107)
[2018-07-15 04:24] LABS: HDL CHOLESTEROL 51 mg/dL (40-59); LDL CHOLESTEROL 103 mg/dL (5-100)
[2018-07-15 04:25] LABS: CREATINE KINASE 747 IU/L (26-192)
[2018-07-15 04:29] LABS: CREATINE KINASE MB FRACTION 84.3 ng/mL (0.5-3.6)
[2018-07-15] MEDS ORDERED: ASPIRIN 81MG EC TABLET PO ONE (07:15)
[2018-07-15] MEDS ORDERED: CLOPIDOGREL 75MG TABLET PO NR (08:00)
[2018-07-15] MEDS: SODIUM CHLORIDE 0.45% 1,000 ML IV SCH ×2 (12:31→18:50)
[2018-07-15] MEDS ORDERED: NICARDIPINE 100MCG/ML 10ML VIAL (CATH LAB) IV ONE (13:33)
[2018-07-15] MEDS ORDERED: NITROGLYCERIN 50MCG/ML 10ML VIAL (CATH LAB) IV ONE (13:33)
[2018-07-15] MEDS ORDERED: PHENYLEPHRINE 100MCG/ML 10ML VIAL (CATH LAB) IV ONE (13:33)
[2018-07-15] MEDS ORDERED: HEPARIN SODIUM 1,000 UNIT/1ML VIAL IV ONE (13:37)
[2018-07-15] MEDS ORDERED: IODIXANOL 320MG/ML 100 ML BOTTLE IV ONE (14:43)
[2018-07-15] MEDS ORDERED: LIDOCAINE HCL 1% 20ML VIAL (Pyxis) INJ ONE (14:43)
[2018-07-15] MEDS ORDERED: MIDAZOLAM HCL 2 MG/2 ML VIAL ONE (14:44)
[2018-07-15] MEDS ORDERED: FENTANYL CITRATE/PF 50MCG/ML 2ML VIAL ONE (14:44)
[2018-07-15] MEDS ORDERED: IOHEXOL-300 100 ML BOTTLE ONE (15:23)
[2018-07-15] MEDS ORDERED: TICAGRELOR 90 MG TABLET PO ONE (15:57)
[2018-07-15] MEDS ORDERED: ATROPINE SULFATE 1MG/10ML SYR IV PRN (16:15)
[2018-07-15] MEDS ORDERED: ONDANSETRON HCL 4MG/2ML INJ IV PRN ×2 (16:15→20:30)
[2018-07-15] MEDS ORDERED: ACETAMINOPHEN 325MG TABLET PO PRN (16:15)
[2018-07-15] MEDS ORDERED: CLONIDINE 0.1MG TABLET PO PRN (20:30)
[2018-07-15] MEDS ORDERED: MORPHINE SULFATE 2 MG/ML CPJ (NOT FOR IM USE) IV PRN (20:30)
[2018-07-16] VITALS (13 sets, daily range): BP systolic 96–121; BP diastolic 47–77
[2018-07-16 06:22] LABS: BASOPHILS % 0.3 % (0.0-2.0); EOSINOPHILS % 0.3 % (0.0-5.0); HEMATOCRIT. 29.4 % (36.0-48.0); HEMOGLOBIN. 9.9 g/dL (12.0-16.0); LYMPHOCYTES % 11.4 % (20.0-50.0); MEAN CORPUSCULAR HEMOGLOBIN 30.4 pg (28.0-32.0); MEAN CORPUSCULAR VOLUME 90.6 fL (81.0-99.0); MEAN PLATELET VOLUME 11.4 fl (7.4-10.4); MONOCYTES % 11.8 % (2.0-8.0); NEUTROPHILS % 76.2 % (40.0-76.0); PLATELET 117 x1000/uL (130-400); RED BLOOD CELL COUNT 3.24 mill/uL (4.2-5.4); RED CELL DISTRIBUTION WIDTH 15.8 % (11.6-14.6)
[2018-07-16] MEDS ORDERED: ASPIRIN 325MG TABLET PO SCH (09:00)
[2018-07-16] MEDS ORDERED: CLOPIDOGREL 75MG TABLET PO SCH (09:00)
[2018-07-16] MEDS: ASPIRIN 81MG EC TABLET PO SCH (10:25)
[2018-07-16] MEDS: TICAGRELOR 90 MG TABLET PO SCH ×2 (10:25→20:40)
[2018-07-16] MEDS: SODIUM CHLORIDE 0.45% 1,000 ML IV SCH ×2 (12:47→22:34)
[2018-07-16] MEDS: DOCUSATE SODIUM 100MG CAPSULE PO PRN (13:06)
[2018-07-16] MEDS: MORPHINE SULFATE 4 MG/ML CPJ (NOT FOR IM USE) IV PRN (13:08)
[2018-07-16] MEDS: LACTULOSE 20G/30ML UDC PO PRN ×3 (14:22→20:40)
[2018-07-16] MEDS: ATORVASTATIN CALCIUM 10MG TABLET PO SCH (20:40)
[2018-07-16] MEDS: METOPROLOL TARTRATE 25MG TABLET PO SCH (20:43)
[2018-07-17] VITALS (15 sets, daily range): BP systolic 91–132; BP diastolic 22–95
[2018-07-17 06:58] LABS: BASOPHILS % 0.3 % (0.0-2.0); EOSINOPHILS % 0.3 % (0.0-5.0); HEMATOCRIT. 30.9 % (36.0-48.0); LYMPHOCYTES % 10.7 % (20.0-50.0); MEAN CORPUSCULAR HEMOGLOBIN 29.8 pg (28.0-32.0); MEAN CORPUSCULAR VOLUME 92.3 fL (81.0-99.0); MONOCYTES % 14.5 % (2.0-8.0); NEUTROPHILS % 74.2 % (40.0-76.0); PLATELET 114 x1000/uL (130-400); RED BLOOD CELL COUNT 3.35 mill/uL (4.2-5.4); RED CELL DISTRIBUTION WIDTH 16.2 % (11.6-14.6)
[2018-07-17] MEDS: ASPIRIN 81MG EC TABLET PO SCH (08:30)
[2018-07-17] MEDS: DOCUSATE SODIUM 100MG CAPSULE PO PRN ×2 (08:30→17:11)
[2018-07-17] MEDS: METOPROLOL TARTRATE 25MG TABLET PO SCH ×2 (08:31→21:00)
[2018-07-17] MEDS: TICAGRELOR 90 MG TABLET PO SCH ×2 (08:31→17:11)
[2018-07-17] MEDS: MORPHINE SULFATE 4 MG/ML CPJ (NOT FOR IM USE) IV PRN ×2 (08:31→17:21)
[2018-07-17] MEDS ORDERED: MECLIZINE 25MG TABLET PO PRN (13:15)
[2018-07-17] MEDS: SODIUM CHLORIDE 0.45% 1,000 ML IV SCH (15:30)
[2018-07-17] MEDS: ATORVASTATIN CALCIUM 10MG TABLET PO SCH (21:09)
[2018-07-17] MEDS: IPRATROPIUM/ALBUTEROL 0.5-3(2.5)MG/3ML NEB HHN PRN (21:30)
[2018-07-18] VITALS (11 sets, daily range): BP systolic 105–136; BP diastolic 54–71
[2018-07-18] MEDS: IPRATROPIUM/ALBUTEROL 0.5-3(2.5)MG/3ML NEB HHN PRN (05:57)
[2018-07-18] MEDS: SODIUM CHLORIDE 0.45% 1,000 ML IV SCH (06:55)
[2018-07-18] MEDS ORDERED: LORAZEPAM 2MG/ML CPJ IV SCH (08:15)
[2018-07-18] MEDS: METOPROLOL TARTRATE 25MG TABLET PO SCH (09:00)
[2018-07-18] MEDS ORDERED: FLUMAZENIL 0.1 MG/ML 5ML VIAL IV ONE (09:00)
[2018-07-18] MEDS ORDERED: FLUMAZENIL 0.1 MG/ML 5ML VIAL IV SCH (09:00)
[2018-07-18] MEDS: TICAGRELOR 90 MG TABLET PO SCH (10:53)
[2018-07-18] MEDS: ASPIRIN 81MG EC TABLET PO SCH (10:53)
[2018-07-18] MEDS ORDERED: ATOR10TA MT (14:47)
== END 2018-07-18 16:18 | disposition home or self-care (01) | DRG 246 ==
LOC: ER 14:26 → ORIP 18:02 → 3WST 07-15 18:26
PROVIDERS: ADMIT Hospitalist; ATTEND Hospitalist
PROC: 02C03ZZ Extirpation of Matter from Coronary Artery, One Artery, Percutaneous Approach (ICD-10-PCS; principal; 2018-07-15)
PROC: 027034Z Dilation of Coronary Artery, One Artery with Drug-eluting Intraluminal Device, Percutaneous Approach (ICD-10-PCS; 2018-07-15)
PROC: B240ZZ3 Ultrasonography of Single Coronary Artery, Intravascular (ICD-10-PCS; 2018-07-15)
PROC: 4A023N7 Measurement of Cardiac Sampling and Pressure, Left Heart, Percutaneous Approach (ICD-10-PCS; 2018-07-15)
PROC: B2101ZZ Fluoroscopy of Single Coronary Artery using Low Osmolar Contrast (ICD-10-PCS; 2018-07-15)
DX: T82.855A Stenosis of coronary artery stent, initial encounter (principal); I21.4 Non-ST elevation (NSTEMI) myocardial infarction; N17.9 Acute kidney failure, unspecified; I24.9 Acute ischemic heart disease, unspecified; T82.867A Thrombosis due to cardiac prosthetic devices, implants and grafts, initial encounter; F41.9 Anxiety disorder, unspecified; J44.9 Chronic obstructive pulmonary disease, unspecified; E78.5 Hyperlipidemia, unspecified; I44.7 Left bundle-branch block, unspecified; I25.5 Ischemic cardiomyopathy; N18.9 Chronic kidney disease, unspecified; I13.10 Hypertensive heart and chronic kidney disease without heart failure, with stage 1 through stage 4 chronic kidney disease, or unspecified chronic kidney disease; I73.9 Peripheral vascular disease, unspecified; I25.10 Atherosclerotic heart disease of native coronary artery without angina pectoris; E78.00 Pure hypercholesterolemia, unspecified; Y83.1 Surgical operation with implant of artificial internal device as the cause of abnormal reaction of the patient, or of later complication, without mention of misadventure at the time of the procedure; Y92.89 Other specified places as the place of occurrence of the external cause; I25.2 Old myocardial infarction; Z95.5 Presence of coronary angioplasty implant and graft; Z86.718 Personal history of other venous thrombosis and embolism
CPT/HCPCS: 36415; 71045; 78582; 80048; 80061; 82550; 82553; 83880; 84484; 85347; 85379; 86850; 86900; 92933; 92978; 93005; 93454; 93970; 96361; 96374; 97162; 97165; 99291; A9558; C1725; C1753; C1760; C1769; C1874; C1887; C1893; J1644; J1650; J2060; J2250; J2270; J2370; J2405; J3010; J3490; J7620; J8597; Q9967; J8499

== ENCOUNTER 2018-07-18 20:22 | Inpatient (IN) | payer MEDICARE, OTHER ==
[~2018-07-18] VITALS: Ht 154.9 cm; Wt 59.1 kg
[~2018-07-18 20:22] MED LIST changes: +ATOR10TA MT
[2018-07-18 23:09] LABS: HEMATOCRIT. 28.1 % (36.0-48.0); HEMOGLOBIN. 9.1 g/dL (12.0-16.0); MEAN CORPUSCULAR HEMOGLOBIN 29.4 pg (28.0-32.0); MEAN CORPUSCULAR VOLUME 91.3 fL (81.0-99.0); MEAN PLATELET VOLUME 11.6 fl (7.4-10.4); PLATELET 133 x1000/uL (130-400); RED BLOOD CELL COUNT 3.08 mill/uL (4.2-5.4); RED CELL DISTRIBUTION WIDTH 16.5 % (11.6-14.6)
[2018-07-18 23:14] LABS: CHLORIDE 105 mEq/L (98-107)
[2018-07-18 23:20] LABS: INR 1.2; PROTHROMBIN TIME 12.3 sec (9.1-11.1)
[2018-07-18 23:21] LABS: PLATELET ESTIMATE NORMAL
[2018-07-18] MEDS ORDERED: ASPIRIN 81MG TABLET PO ONE (23:45)
[2018-07-19] VITALS (11 sets, daily range): BP systolic 92–109; BP diastolic 41–63
[2018-07-19] MEDS ORDERED: FUROSEMIDE 40MG/4ML VIAL IVP SCH (01:00)
[2018-07-19] MEDS: BUDESONIDE 0.5MG/2ML NEB HHN SCH (02:23)
[2018-07-19] MEDS ORDERED: DIPHENHYDRAMINE 50MG/ML VIAL IV PRN (02:45)
[2018-07-19] MEDS ORDERED: CLONIDINE 0.1MG TABLET PO PRN (02:45)
[2018-07-19] MEDS ORDERED: LORAZEPAM 2MG/ML CPJ IV PRN (02:45)
[2018-07-19] MEDS ORDERED: MAGNESIUM/ALUMINUM HYDROXIDE/SIMETHICONE 30ML UDC PO PRN (02:45)
[2018-07-19] MEDS ORDERED: GUAIFENESIN 200MG/10ML SUGAR FREE UDC PO PRN (02:45)
[2018-07-19] MEDS ORDERED: ACETAMINOPHEN 325MG TABLET PO PRN (02:45)
[2018-07-19] MEDS ORDERED: IPRATROPIUM/ALBUTEROL 0.5-3(2.5)MG/3ML NEB INH PRN (02:45)
[2018-07-19] MEDS ORDERED: HYDRALAZINE 20MG/ML VIAL IV PRN (02:45)
[2018-07-19] MEDS ORDERED: ENOXAPARIN 40MG/0.4ML SYR SUBCUT SCH (02:45)
[2018-07-19] MEDS ORDERED: ONDANSETRON HCL 4MG/2ML INJ IV PRN (02:45)
[2018-07-19] MEDS ORDERED: HYDROMORPHONE HCL/PF 2MG/ML CPJ IV PRN (02:45)
[2018-07-19] MEDS ORDERED: DOCUSATE SODIUM 100MG CAPSULE PO PRN (02:45)
[2018-07-19] MEDS: SODIUM CHLORIDE 0.9% INJ 3ML FLUSH IVF SCH ×3 (06:00→21:04)
[2018-07-19] MEDS: ENOXAPARIN 30MG/0.3ML SYR SUBCUT SCH (08:41)
[2018-07-19] MEDS: ASPIRIN 81MG EC TABLET PO SCH (08:41)
[2018-07-19] MEDS ORDERED: TICAGRELOR 90 MG TABLET PO NR (14:15)
[2018-07-19] MEDS: IPRATROPIUM/ALBUTEROL 0.5-3(2.5)MG/3ML NEB HHN SCH (20:45)
[2018-07-19] MEDS ORDERED: ENOXAPARIN 30MG/0.3ML SYR SUBCUT ONE (22:00)
[2018-07-20] VITALS (12 sets, daily range): BP systolic 100–120; BP diastolic 45–67
[2018-07-20] MEDS: IPRATROPIUM/ALBUTEROL 0.5-3(2.5)MG/3ML NEB HHN SCH ×4 (02:21→20:29)
[2018-07-20 05:48] LABS: BASOPHILS % 0.2 % (0.0-2.0); EOSINOPHILS % 0.6 % (0.0-5.0); HEMATOCRIT. 25.8 % (36.0-48.0); HEMOGLOBIN. 8.4 g/dL (12.0-16.0); LYMPHOCYTES % 9.8 % (20.0-50.0); MEAN CORPUSCULAR HEMOGLOBIN 29.7 pg (28.0-32.0); MEAN CORPUSCULAR VOLUME 90.9 fL (81.0-99.0); MEAN PLATELET VOLUME 11.8 fl (7.4-10.4); MONOCYTES % 13.3 % (2.0-8.0); NEUTROPHILS % 76.1 % (40.0-76.0); PLATELET 137 x1000/uL (130-400); RED BLOOD CELL COUNT 2.84 mill/uL (4.2-5.4); RED CELL DISTRIBUTION WIDTH 16.4 % (11.6-14.6)
[2018-07-20] MEDS: SODIUM CHLORIDE 0.9% INJ 3ML FLUSH IVF SCH ×3 (06:31→22:00)
[2018-07-20 07:00] LABS: CHLORIDE 108 mEq/L (98-107)
[2018-07-20 07:17] LABS: LDL CHOLESTEROL 72 mg/dL (5-100)
[2018-07-20 07:18] LABS: CREATINE KINASE 314 IU/L (26-192); HDL CHOLESTEROL 39 mg/dL (40-59)
[2018-07-20 07:21] LABS: CREATINE KINASE MB FRACTION 10.8 ng/mL (0.5-3.6)
[2018-07-20] MEDS: ASPIRIN 81MG EC TABLET PO SCH (08:17)
[2018-07-20] MEDS: TICAGRELOR 90 MG TABLET PO SCH ×2 (08:18→16:11)
[2018-07-20] MEDS: ENOXAPARIN 30MG/0.3ML SYR SUBCUT SCH (08:18)
[2018-07-20] MEDS: BUDESONIDE 0.5MG/2ML NEB HHN SCH ×2 (08:54→20:29)
[2018-07-20] MEDS: HYDROCODONE/ACETAMINOPHEN 10/325MG TABLET PO PRN (09:25)
[2018-07-20] MEDS: CITRIC ACID/SODIUM CITRATE SOLN 30ML UDC PO SCH ×2 (12:45→16:11)
[2018-07-20] MEDS: ACETYLCYSTEINE 100MG/ML 10% VIAL 4ML INH SCH (16:07)
[2018-07-20] MEDS: LANSOPRAZOLE 30MG DR CAPSULE PO SCH (16:11)
[2018-07-20] MEDS: IRON SUCROSE COMPLEX 100 MG/5 ML ML IV SCH (17:20)
[2018-07-20 19:49] LABS: TOTAL IRON BINDING CAPACITY 196 ug/dL (250-450)
[2018-07-21] VITALS (12 sets, daily range): BP systolic 93–124; BP diastolic 46–75
[2018-07-21] MEDS: IPRATROPIUM/ALBUTEROL 0.5-3(2.5)MG/3ML NEB HHN SCH ×6 (00:56→20:38)
[2018-07-21] MEDS: ACETYLCYSTEINE 100MG/ML 10% VIAL 4ML INH SCH ×3 (00:59→15:52)
[2018-07-21] MEDS: SODIUM CHLORIDE 0.9% INJ 3ML FLUSH IVF SCH ×3 (06:00→22:00)
[2018-07-21 06:30] LABS: BASOPHILS % 0.2 % (0.0-2.0); EOSINOPHILS % 0.6 % (0.0-5.0); HEMATOCRIT. 25.2 % (36.0-48.0); HEMOGLOBIN. 8.2 g/dL (12.0-16.0); LYMPHOCYTES % 9.5 % (20.0-50.0); MEAN CORPUSCULAR HEMOGLOBIN 29.9 pg (28.0-32.0); MEAN CORPUSCULAR VOLUME 91.6 fL (81.0-99.0); MEAN PLATELET VOLUME 11.8 fl (7.4-10.4); MONOCYTES % 14.3 % (2.0-8.0); NEUTROPHILS % 75.4 % (40.0-76.0); PLATELET 168 x1000/uL (130-400); RED BLOOD CELL COUNT 2.75 mill/uL (4.2-5.4)
[2018-07-21] MEDS ORDERED: IPRATROPIUM BROMIDE (0.02%) 0.5MG/2.5ML NEB ONE (07:41)
[2018-07-21] MEDS: BUDESONIDE 0.5MG/2ML NEB HHN SCH ×2 (07:48→20:38)
[2018-07-21] MEDS: IRON SUCROSE COMPLEX 100 MG/5 ML ML IV SCH (08:03)
[2018-07-21] MEDS: LANSOPRAZOLE 30MG DR CAPSULE PO SCH (08:03)
[2018-07-21] MEDS: CITRIC ACID/SODIUM CITRATE SOLN 30ML UDC PO SCH (08:03)
[2018-07-21] MEDS: TICAGRELOR 90 MG TABLET PO SCH ×2 (08:03→16:29)
[2018-07-21] MEDS: ASPIRIN 81MG EC TABLET PO SCH (08:03)
[2018-07-21] MEDS: HYDROCODONE/ACETAMINOPHEN 10/325MG TABLET PO PRN (08:06)
[2018-07-21 17:24] LABS: CLARITY URINE CLEAR (CLEAR); COLOR URINE DARK YELLOW (YELLOW); KETONES URINE 1+ (NEGATIVE); LEUKOCYTE ESTERASE URINE TRACE (NEGATIVE); NITRITE URINE NEGATIVE (NEGATIVE); OCCULT BLOOD URINE NEGATIVE (NEGATIVE); PROTEIN URINE NEGATIVE (NEGATIVE); SPECIFIC GRAVITY URINE 1.021 (1.005-1.030); UROBILINOGEN URINE 0.2 E.U./dL (0.2-1.0)
[2018-07-22] VITALS (26 sets, daily range): BP systolic 75–162; BP diastolic 23–85
[2018-07-22] MEDS: IPRATROPIUM/ALBUTEROL 0.5-3(2.5)MG/3ML NEB HHN SCH ×6 (00:24→20:25)
[2018-07-22] MEDS: ACETYLCYSTEINE 100MG/ML 10% VIAL 4ML INH SCH ×2 (00:24→07:25)
[2018-07-22] MEDS: SODIUM CHLORIDE 0.9% INJ 3ML FLUSH IVF SCH ×3 (05:49→22:08)
[2018-07-22 06:03] LABS: BASOPHILS % 0.2 % (0.0-2.0); HEMATOCRIT. 28.1 % (36.0-48.0); HEMOGLOBIN. 9.2 g/dL (12.0-16.0); LYMPHOCYTES % 8.6 % (20.0-50.0); MEAN CORPUSCULAR HEMOGLOBIN 30.1 pg (28.0-32.0); MEAN PLATELET VOLUME 11.6 fl (7.4-10.4); MONOCYTES % 11.6 % (2.0-8.0); NEUTROPHILS % 79.6 % (40.0-76.0); PLATELET 196 x1000/uL (130-400); RED BLOOD CELL COUNT 3.05 mill/uL (4.2-5.4)
[2018-07-22] MEDS: BUDESONIDE 0.5MG/2ML NEB HHN SCH ×2 (07:25→20:22)
[2018-07-22] MEDS: LANSOPRAZOLE 30MG DR CAPSULE PO SCH (09:02)
[2018-07-22] MEDS: ASPIRIN 81MG EC TABLET PO SCH (09:02)
[2018-07-22] MEDS: CITRIC ACID/SODIUM CITRATE SOLN 30ML UDC PO SCH (09:02)
[2018-07-22] MEDS: TICAGRELOR 90 MG TABLET PO SCH (09:02)
[2018-07-22] MEDS: IRON SUCROSE COMPLEX 100 MG/5 ML ML IV SCH (09:02)
[2018-07-22] MEDS ORDERED: REGADENOSON 0.4 MG/5 ML IV ONE (12:30)
[2018-07-22] MEDS ORDERED: TERBUTALINE SULFATE 1MG/ML VIAL SUBCUT SCH (14:15)
[2018-07-22] MEDS ORDERED: FAMOTIDINE 20MG/2ML VIAL IV SCH (14:18)
[2018-07-22] MEDS: PREDNISONE 20MG TABLET PO SCH ×2 (14:42→19:00)
[2018-07-22] MEDS ORDERED: MORPHINE SULFATE 4 MG/ML CPJ (NOT FOR IM USE) IV PRN (17:15)
[2018-07-22] MEDS ORDERED: LORAZEPAM 2MG/ML CPJ IV PRN (17:15)
[2018-07-22 17:24] LABS: BG BASE EXCESS -15.7 mmol/L (-2.0-2.0); BG CARBOXYHEMOGLOBIN 0.3 % (0.5-1.5); BG DEOXYHEMOGLOBIN 8.8 % (0.0-5.0); BG FRACTION INSPIRED OXYGEN 36; BG HCO3 ACT 8.4 mmol/L (22.0-26.0); BG METHEMOGLOBIN 0.5 % (0.0-1.5); BG OXYGEN SATURATION 91.1 % (92.0-98.5); BG OXYHEMOGLOBIN 90.4 % (94.0-97.0); BG PCO2 16.7 mmHg (35.0-45.0); BG PH 7.322 (7.350-7.450); BG PO2 76.4 mmHg (75.0-100.0); BG SAMPLE SITE LEFT BRACHIAL; BG TOTAL HEMOGLOBIN 9.2 g/dL (12.0-18.0); BG VENT MODE NASAL CANNULA
[2018-07-22] MEDS ORDERED: PROPOFOL 10MG/ML 100ML 100 ML IV PRN (17:45)
[2018-07-22] MEDS ORDERED: SODIUM BICARBONATE 8.4% 1 MEQ/ML 50ML SYR IV NR (17:45)
[2018-07-22] MEDS ORDERED: SODIUM CHLORIDE 0.9% 10ML VIAL ONE (18:15)
[2018-07-22] MEDS ORDERED: VECURONIUM BROMIDE 10 MG/VIAL IV ONE (18:15)
[2018-07-22] MEDS ORDERED: ETOMIDATE 2MG/ML 10ML VIAL IV ONE (18:15)
[2018-07-22] MEDS: PHENYLEPHRINE 40 MG in DEXT 5% WATER 246 ML IV PRN ×2 (18:38→23:28)
[2018-07-22 19:02] LABS: BG BASE EXCESS -10.6 mmol/L (-2.0-2.0); BG CARBOXYHEMOGLOBIN 0.2 % (0.5-1.5); BG DEOXYHEMOGLOBIN 0.7 % (0.0-5.0); BG FRACTION INSPIRED OXYGEN 100; BG HCO3 ACT 12.3 mmol/L (22.0-26.0); BG METHEMOGLOBIN 0.4 % (0.0-1.5); BG OXYGEN SATURATION 99.3 % (92.0-98.5); BG OXYHEMOGLOBIN 98.7 % (94.0-97.0); BG PCO2 19.4 mmHg (35.0-45.0); BG PH 7.419 (7.350-7.450); BG PO2 531.8 mmHg (75.0-100.0); BG SAMPLE SITE RIGHT BRACHIAL; BG TIDAL VOLUME(mL) 500 mL; BG TOTAL HEMOGLOBIN 9.2 g/dL (12.0-18.0); BG VENT MODE VENT - A/C; BG VENT RATE 20 set
[2018-07-22] MEDS: FLUTICASONE PROPIONATE 50MCG/SPRAY BOTTLE BOTHNSTRLS SCH (21:00)
[2018-07-22] MEDS ORDERED: LORATADINE 10MG TABLET PO SCH (21:00)
[2018-07-23] VITALS (38 sets, daily range): BP systolic 54–172; BP diastolic 15–106
[2018-07-23] MEDS: IPRATROPIUM/ALBUTEROL 0.5-3(2.5)MG/3ML NEB HHN SCH ×3 (00:29→08:15)
[2018-07-23] MEDS ORDERED: NOREPINEPHRINE 8 MG in DEXT 5% WATER 242 ML IV PRN (04:00)
[2018-07-23 05:04] LABS: HEMOGLOBIN. 8.6 g/dL (12.0-16.0); MEAN CORPUSCULAR HEMOGLOBIN 30.3 pg (28.0-32.0); MEAN CORPUSCULAR VOLUME 102.2 fL (81.0-99.0); PLATELET 148 x1000/uL (130-400); RED BLOOD CELL COUNT 2.83 mill/uL (4.2-5.4); RED CELL DISTRIBUTION WIDTH 17.6 % (11.6-14.6)
[2018-07-23] MEDS ORDERED: SODIUM BICARBONATE 8.4% 1 MEQ/ML 50ML SYR IV SCH ×2 (06:00)
[2018-07-23] MEDS: SODIUM CHLORIDE 0.9% INJ 3ML FLUSH IVF SCH (06:01)
[2018-07-23] MEDS ORDERED: SODIUM BICARBONATE 8.4% 1 MEQ/ML 50ML SYR IV ONE ×2 (07:00→07:50)
[2018-07-23] MEDS ORDERED: DOPAMINE 400MG/250ML PREMIX 250 ML IV PRN (07:00)
[2018-07-23] MEDS ORDERED: SODIUM BICARBONATE 100 MEQ in DEXTROSE 5% WATER 1,000 ML IV SCH (07:00)
[2018-07-23] MEDS ORDERED: CEFEPIME 2,000 MG in DEXT 5% WATER 100 ML IV SCH (08:00)
[2018-07-23] MEDS: FLUTICASONE PROPIONATE 50MCG/SPRAY BOTTLE BOTHNSTRLS SCH (08:26)
[2018-07-23] MEDS: PREDNISONE 20MG TABLET PO SCH (08:27)
[2018-07-23] MEDS: CITRIC ACID/SODIUM CITRATE SOLN 30ML UDC PO SCH (08:27)
[2018-07-23] MEDS: ASPIRIN 81MG EC TABLET PO SCH (08:27)
[2018-07-23] MEDS: TICAGRELOR 90 MG TABLET PO SCH (08:28)
[2018-07-23] MEDS ORDERED: SODIUM POLYSTYRENE SULFONATE 15 G/60 ML BOT PO SCH (09:00)
[2018-07-23] MEDS ORDERED: VANCOMYCIN 1500MG in DEXTROSE 5% WATER 250ML IV NR (09:00)
[2018-07-23] MEDS ORDERED: CEFEPIME 1,000 MG in DEXTROSE 5% WATER 50 ML IV SCH (09:00)
[2018-07-23] MEDS ORDERED: EPINEPHRINE 1 MG in SODIUM CHLORIDE 0.9% 249 ML IV PRN (09:00)
[2018-07-23] MEDS ORDERED: DOPAMINE 800MG PREMIX (DOUBLE) 250 ML IV ONE (09:15)
[2018-07-23] MEDS ORDERED: DEXTROSE 50% WATER 50ML SYRINGE IV ONE ×3 (09:21→10:00)
[2018-07-23 09:57] LABS: NUCLEATED RED BLOOD CELLS 7 /100 WBC
[2018-07-23 09:58] LABS: PLATELET ESTIMATE NORMAL
[2018-07-23] MEDS ORDERED: SODIUM BICARBONATE 8.4% MEQ/ML 50ML VIAL IV ONE (10:00)
[2018-07-23] MEDS ORDERED: EPINEPHRINE 0.1MG/ML (1:10,000) 10ML SYR ONE (10:00)
[2018-07-23] MEDS ORDERED: ATROPINE SULFATE 1MG/10ML SYR ONE (10:00)
[2018-07-23] MEDS ORDERED: METRONIDAZOLE 500 MG PREMIX 100 ML IV SCH (10:00)
[2018-07-23] MEDS ORDERED: PETROLATUM,WHITE OPHTH OINT 3.5GM BOTHEYE SCH (10:00)
[2018-07-23] MEDS ORDERED: CALCIUM CHLORIDE 1GM/10ML SYR IV ONE (10:00)
== END 2018-07-23 13:00 | disposition expired | DRG 871 ==
LOC: ER 20:22 → 5EST 07-19 01:09 → EDBEDREQTM 07-19 01:12 → EDBEDREQ 07-19 01:12 → EDBEDREQSVC 07-19 01:12 → EDBEDREQDT 07-19 01:12 → ENRESERV 07-19 03:14 → MICUSO 07-22 17:45
PROVIDERS: ADMIT Internal Medicine; ATTEND Internal Medicine
PROC: 5A09357 Assistance with Respiratory Ventilation, Less than 24 Consecutive Hours, Continuous Positive Airway Pressure (ICD-10-PCS; 2018-07-18)
PROC: 5A1935Z Respiratory Ventilation, Less than 24 Consecutive Hours (ICD-10-PCS; principal; 2018-07-22)
PROC: 0BH17EZ Insertion of Endotracheal Airway into Trachea, Via Natural or Artificial Opening (ICD-10-PCS; 2018-07-22)
PROC: 06HY33Z Insertion of Infusion Device into Lower Vein, Percutaneous Approach (ICD-10-PCS; 2018-07-22)
PROC: B54CZZA Ultrasonography of Left Lower Extremity Veins, Guidance (ICD-10-PCS; 2018-07-22)
PROC: 5A12012 Performance of Cardiac Output, Single, Manual (ICD-10-PCS; 2018-07-23)
DX: A41.9 Sepsis, unspecified organism (principal); J96.00 Acute respiratory failure, unspecified whether with hypoxia or hypercapnia; J69.0 Pneumonitis due to inhalation of food and vomit; I21.4 Non-ST elevation (NSTEMI) myocardial infarction; R65.21 Severe sepsis with septic shock; E46 Unspecified protein-calorie malnutrition; J44.0 Chronic obstructive pulmonary disease with (acute) lower respiratory infection; J44.1 Chronic obstructive pulmonary disease with (acute) exacerbation; E87.2 Acidosis; I12.9 Hypertensive chronic kidney disease with stage 1 through stage 4 chronic kidney disease, or unspecified chronic kidney disease; N18.3 Chronic kidney disease, stage 3 (moderate); I25.5 Ischemic cardiomyopathy; E78.00 Pure hypercholesterolemia, unspecified; I73.9 Peripheral vascular disease, unspecified; E78.5 Hyperlipidemia, unspecified; I44.7 Left bundle-branch block, unspecified; R26.9 Unspecified abnormalities of gait and mobility; I25.10 Atherosclerotic heart disease of native coronary artery without angina pectoris; I46.9 Cardiac arrest, cause unspecified; D50.9 Iron deficiency anemia, unspecified; F17.210 Nicotine dependence, cigarettes, uncomplicated; R74.0 Nonspecific elevation of levels of transaminase and lactic acid dehydrogenase [LDH]; F41.9 Anxiety disorder, unspecified; I50.9 Heart failure, unspecified; Z79.02 Long term (current) use of antithrombotics/antiplatelets; Z79.82 Long term (current) use of aspirin; Z68.24 Body mass index [BMI] 24.0-24.9, adult; I25.2 Old myocardial infarction; Z86.718 Personal history of other venous thrombosis and embolism; Z98.82 Breast implant status
CPT/HCPCS: 31500; 36415; 36600; 71045; 71250; 80048; 80061; 82375; 82550; 82553; 82805; 82962; 83540; 83550; 83605; 83880; 84478; 84484; 85044; 87070; 92610; 92950; 93005; 93306; 93970; 94002; 94003; 94640; 94660; 96374; 97162; 97166; 99291; C1893; J0461; J0692; J1170; J1265; J1650; J1940; J2060; J2370; J2704; J3105; J3370; J3490; J7040; J7050; J7060; J7070; J7512; J7608; J7620; J7626; J8499